=== PATIENT | male | born 1950 | race Caucasian/White ===

== ENCOUNTER 2018-11-04 09:44 | Observation (INO) ==
--- NOTE | 2018-10-28 10:09 | Anesthesiology Consultation ---
Date of Service October 28, 2018 Assessment & Plan (1) Encounter for pre-operative examination: Chart Review Chart Review: Acceptable Risk for Surgery and Patient seen in Pre Admission Testing Consults Requested none Teaching & Discussion Pre-Anesthesia Teaching/Discussion Notes: Instructed NPO after midnight before surgery, except medications with 15 cc of water. Medication instructions provided according to the PAT guidelines. History Surgery Operation Date: 11/04/18 11:55 Proposed Procedures p Percutaneous Nephrolithotomy - Jah Dee II, DO Height/Weight Height: 5 ft 9 in Weight: 75.6 kg Allergies Allergy/AdvReac Type Severity Reaction Status Date / Time No Known Allergies Allergy Verified 10/24/18 10:58 Medications Home Medications Medication Instructions Recorded Confirmed Last Taken amlodipine 10 mg PO QAM 10/24/18 10/24/18 Unknown metoprolol tartrate 25 mg PO QAM 10/24/18 10/24/18 Unknown multivitamin 1 tab PO QAM 10/24/18 10/24/18 Unknown tamsulosin 0.4 mg PO QPM 10/24/18 10/24/18 Unknown Past Medical History Medical History Chronic back pain ON OCC TO RIGHT LEG Hypertension Kidney stones Past Surgical History Surgical History H/O elbow surgery LEFT - REMOVED BURSA SAC H/O hand surgery RIGHT PARTIAL AMPUTATION THIRD DIGIT History of lithotripsy Past Anesthesia History No Hx of Anesthesia Complications and No Family Hx of Anesthesia Complications History of PONV No Motion Sickness Screening History of Motion Sickness: No Social History Smoking Status: Current every day smoker tobacco type: cigarettes Smoking cigarettes per day: 10 CIGS A DAY X 20 YRS (Advised) Do You Dip or Chew Tobacco: Yes (ON OCC (Advised)) Hx Alcohol Use: No Hx Substance Use: No substance use type: does not use Exercise / Class Metabolic Activity II 4-5 Yardwork/Stairs/Walk up hill (Able to easily climb FOS. Denies CP or SOB. ) Review of Systems Patient denies chest pain, shortness of breath, dyspnea on exertion, reflux, cough, wheezing, palpitations. +Joint pain (back) Physical Exam Vital Signs BP: 131/88 P: 82 R: 18 T: 97.9 SPO2: 95% on RA ENMT Mouth: + dentures (Full set on top) and + poor dentition (bottom) Thyromental Distance: > or= 3.5 Finger Breadths (3.5) Mallampati Class: II Neck normal visual inspection and trachea midline; neck extension not limited Respiratory normal respiratory effort Auscultation: lungs clear to auscultation bilaterally Cardiovascular Rate/Rhythm: regular rate and regular rhythm Heart Sounds: no murmur Vessels: no carotid bruit Neurologic moves all extremities Psychiatric Orientation: alert and oriented x 3 Testing Electrocardiogram Date: 10/28/18 Findings: + NSR @ (71) and + NSST changes Chest X-Ray Date: 10/28/18 FINDINGS: PA and lateral chest radiographs are obtained. No prior studies are available for comparison at the time of dictation. The cardiomediastinal silhouette is unremarkable. There is mild bibasilar scarring/atelectasis. The lungs and pleural spaces are otherwise clear. There is no pneumothorax. The bony thorax appears intact. IMPRESSION: No active disease in the chest. Laboratory Results 10/28/18 10:24 10/28/18 10:24 Urine Color Yellow 10/28/18 10:24 Urine Appearance Clear (Clear) 10/28/18 10:24 Urine pH 7.5 (4.5-7.5) 10/28/18 10:24 Ur Specific [place] 1.015 (1.000-1.030) 10/28/18 10:24 Urine Protein 1+ (Negative) H 10/28/18 10:24 Urine Glucose (UA) Negative (Negative) 10/28/18 10:24 Urine Ketones Negative (Negative) 10/28/18 10:24 Urine Nitrite Negative (Negative) 10/28/18 10:24 Ur Leukocyte Esterase 3+ (Negative) H 10/28/18 10:24 Urine WBC (Auto) >30 /hpf (0-5) H 10/28/18 10:24 Urine RBC (Auto) >30 /hpf (0-4) H 10/28/18 10:24 U Hyaline Cast (Auto) 5-10 /lpf (0-5) H 10/28/18 10:24 U Epithel Cells (Auto) 0-5 /lpf (0-5) 10/28/18 10:24 Urine Bacteria (Auto) 1+ (Negative) H 10/28/18 10:24 10/28/18 10:24 Urine Culture - Preliminary Urine,Clean Catch Staphylococcus species Surgeon notified about UTI.
--- NOTE | 2018-10-28 10:16 | PAT Medication Instructions ---
Medication Instructions Date of Service October 28, 2018 Home Medications amlodipine 10 mg PO QAM metoprolol tartrate 25 mg PO QAM multivitamin 1 tab PO QAM tamsulosin 0.4 mg PO QPM DO NOT take the morning of surgery multivitamin 1 tab PO QAM Take morning of surgery With a small sip of water, OTHERWISE NOTHING TO EAT OR DRINK AFTER MIDNIGHT: amlodipine 10 mg PO QAM metoprolol tartrate 25 mg PO QAM Take evening before surgery tamsulosin 0.4 mg PO QPM Other Notes If you have any questions please call us at [phone] or [phone] or [phone] or [phone]
--- NOTE | 2018-10-28 10:44 | XRay Report ---
TWO VIEW CHEST CLINICAL HISTORY: Preoperative examination. FINDINGS: PA and lateral chest radiographs are obtained. No prior studies are available for compariso n at the time of dictation. The cardiomediastinal silhouette is unremarkable. There is mild bibasila r scarring/atelectasis. The lungs and pleural spaces are otherwise clear. There is no pneumothorax. T he bony thorax appears intact. IMPRESSION: No active disease in the chest. Electronically signed by: Rober Kaiser M.D. 10/28/2018 10:43 AM
[2018-10-28 10:51] LABS: Basophils # (auto) 0.06 K/uL (0-0.2); Basophils % (auto) 0.9 %; Eosinophils # (auto) 0.13 K/uL (0-0.5); Eosinophils % (auto) 2.1 %; Hematocrit (blood only) 41.3 % (42-52); Hemoglobin 14.2 g/dL (14.0-18.0); Immature Granulocytes # (auto) 0.01 K/uL (0.00-0.02); Immature Granulocytes % (auto) 0.2 %; Lymphocytes # (auto) 1.94 K/uL (1.2-3.4); Lymphocytes % (auto) 30.6 %; Mean Corpuscular Hgb Conc 34.4 g/dL (32-36); Mean Corpuscular Volume 89.2 fL (80-100); Mean Platelet Volume 9.4 fL (7.4-10.4); Monocytes # (auto) 0.43 K/uL (0.11-0.59); Monocytes % (auto) 6.8 %; Neutrophils # (auto) 3.76 K/uL (1.4-6.5); Neutrophils % (auto) 59.4 %; Platelet Count 294 K/uL (130-400); RDW Coefficient of Variation 14.3 % (11.5-14.5); RDW Standard Deviation 46.9 fL (36.4-46.3); Red Blood Count 4.63 M/uL (4.7-6.1); White Blood Count 6.33 K/uL (4.8-10.8)
[2018-10-28 11:55] LABS: Appearance Urine Clear (Clear); Bacteria Urine Automated 1+ (Negative); Bilirubin Urine Negative (Negative); Blood Urine 2+ (Negative); Color Urine Yellow; Epithelial Cell Urine Auto 0-5 /lpf (0-5); Glucose Urine UA Negative (Negative); Ketones Urine Negative (Negative); Leukocyte Esterase Urine 3+ (Negative); Nitrite Urine Negative (Negative); RBC Urine Automated >30 /hpf (0-4); Specific Gravity Urine 1.015 (1.000-1.030); Urobilinogen Urine Negative (Negative); WBC Urine Automated >30 /hpf (0-5); pH Urine 7.5 (4.5-7.5)
[2018-10-28 12:09] LABS: Protein Urine 1+ (Negative)
[2018-10-28 12:32] LABS: BUN Creatinine Ratio 14.8 (10-20); Calcium 8.5 mg/dl (8.5-10.1); Creatinine Clr Calc Pharmacy 61.5 ml/min; Est GFR (African American) 75.4; Potassium 3.8 mmol/L (3.5-5.1)
[~2018-11-04 09:44] MED LIST: CEFAZOLIN 2000MG 2,000 MG/15 ML SYR IV SCH; LR 15ML/HR IV SCH
[2018-11-04] MEDS ORDERED: ONDANSETRON INJ 2 MG/ML 2 ML VIAL IV PRN ×2 (11:13→17:14)
[2018-11-04] MEDS ORDERED: ePHEDrine sulfate 50 MG/ML AMP IV PRN (11:13)
[2018-11-04] MEDS ORDERED: fentaNYL citrate 100 MCG/2 ML VIAL IV PRN (11:13)
[2018-11-04] MEDS ORDERED: ATROPINE SULFATE 0.1 MG/ML 10ML SYR IV PRN (11:13)
[2018-11-04] MEDS ORDERED: LARYING-O-JET KIT (LTA) ONE (11:38)
[2018-11-04] MEDS ORDERED: ONDANSETRON INJ 2 MG/ML 2 ML VIAL ONE (11:38)
[2018-11-04] MEDS ORDERED: MIDAZOLAM HCL 1 MG/ML 2ML VIAL ONE (11:38)
[2018-11-04] MEDS ORDERED: GLYCOPYRROLATE 0.2 MG/ML VIAL ONE ×2 (11:38→15:48)
[2018-11-04] MEDS ORDERED: PROPOFOL IV EMULSION 10 MG/ML 20 ML VIAL IV ONE (11:38)
[2018-11-04] MEDS ORDERED: ePHEDrine sulfate 50 MG/ML SYR ONE (11:38)
[2018-11-04] MEDS ORDERED: DEXAMETHASONE SOD INJ 4 MG/ML VIAL ONE (11:38)
[2018-11-04] MEDS ORDERED: LIDOCAINE HCL 2% 2 ML VIAL/AMP(20MG/ML) INFIL ONE (11:38)
[2018-11-04] MEDS ORDERED: ROCURONIUM BROMIDE 10 MG/ML 5 ML VIAL ONE (11:38)
[2018-11-04] MEDS ORDERED: NEOSTIGMINE METHYLSULFATE 5 MG/5 ML SYR ONE (11:38)
[2018-11-04] MEDS ORDERED: fentaNYL citrate 100 MCG/2 ML VIAL ONE ×3 (11:38→16:18)
--- NOTE | 2018-11-04 11:54 | History & Physical Bridge Note ---
Date of Service November 04, 2018 History & Physical Bridge Note I have examined the patient, reviewed the History & Physical and in the interval since the performance of the History & Physical I have noted the following changes of clinical significance: no changes noted
[2018-11-04] MEDS ORDERED: LIDOCAINE HCL 1% 20 ML VIAL ONE (13:37)
[2018-11-04] MEDS ORDERED: GELATIN SPONGE 12-7MM ONE (13:37)
[2018-11-04] MEDS ORDERED: BUPIVACAINE/EPINEPHRINE 0.5% MPF 1:200,000 30 ML VIAL ONE (13:37)
[2018-11-04] MEDS ORDERED: IOTHALAMATE MEGLUMINE II 17.2% 250 ML VIAL ONE (13:37)
--- NOTE | 2018-11-04 15:58 | Post Operative Brief Note ---
Immediate Post Op Note v1 Date of Surgery November 04, 2018 Pre & Post Diagnosis Operation Date: 11/04/18 11:40 Pre-Op Diagnosis: Nephrolithiasis Post-Op Diagnosis: Nephrolithiasis Procedure Operation Date: 11/04/18 11:40 Actual Procedures p Percutaneous Nephrolithotomy(Right) - Jah Dee II, DO Surgeon Jah Dee II, DO Ski Binding Fitter And Repairer Lilo LEMUS Estimated Blood Loss 10 Findings Consistent with Post-Op Diagnosis Specimens Stone right renal pelvis Drains Neal Catheter and Other Anesthesia Type General Complications none Disposition Disposition: Recovery Room Overlapping Procedure I was present for: the critical portions of procedure. I was immediately available: during the entire case. Back up surgeon: was not required during procedure.
--- NOTE | 2018-11-04 16:21 | Operative Report ---
Post Operative Report Pre & Post Diagnosis Operation Date: 11/04/18 11:40 Pre-Op Diagnosis: Nephrolithiasis Post-Op Diagnosis: Nephrolithiasis Procedure Operation Date: 11/04/18 11:40 Actual Procedures p Percutaneous Nephrolithotomy with [place] Lithoclast Lithotripsy and dilation and ureteroscopy with stone extraction. (Right) - Jah Dee II, DO Surgeon Jah Dee, II, DO Web Systems Developer Lilo LEMUS Estimated Blood Loss 10 Findings Consistent with Post-Op Diagnosis Approx 2.8 x 3.6 x 2.0 cm of total stone burden filling the renal pelvis. 1 cm stone in UPJ with stent migrated down into ureter. Specimens Stone right renal pelvis. Drains 18 Fr Neal Anesthesia Type General Complications none Disposition Disposition: Recovery Room Indications Patient with large stone burden in right renal pelvis with previous stent and nephrostomy tube. Risks and benefits discussed at length. Description of Procedure Patient was consented and brought back to the operating room. Patient was placed under anesthesia in the supine position. At this point, a catheter was placed and the patient was moved to the prone position. Patient was prepped and draped in the regular sterile fashion. A time out was completed. With timeout completed, a nephrostogram was completed through the tube, the nephrostomy tube was unsecured, and a wire was placed. This wire was manipulated and positioned into the ureter. Local anesthetic was placed into the skin. The nephrostomy tube was removed and an incision was made into the skin and subcutaneous tissues. The 8-10 Fr Dilator was taken over the wire and dilated the tract. The 10 fr sheath was left in place and a second wire was placed and secured once the sheath was removed. The balloon dilator was selected and the tissues were dilated with 12-13 mmHg of pressure into the balloon. This was elevated for for adequate dilation and the nephrotomy sheath was placed over the partially deflated balloon. The first attempt at placement did not adequately position the sheath. The wire was left in place and the balloon elevated again. This was taken again to 12-13 mmhg. The balloon was partially deflated and the sheath was advanced again. This time, the sheath was better positioned. It was easily placed and advanced. The balloon was removed and the wire remained. The nephroscope was selected and taken into the pelvis.. The large stones were identified and the lithoclast device was selected. The stones was pulverized to fragments with the ultrasonic and pneumatic settings. Fragments were irrigated. The large stones were completely destroyed. Larger fragments were grasped and removed. The remaining pelvis was examined. Further stones were identified in the lower pole and upper pole and these were pulverized with fragments removed. The entire pelvis was found to be clear of stones. No additional stone fragments were discovered. The UPJ was examined and found to contain a larger stone approx 1 cm that appeared to displace the ureteral stent which was already in place. The stone fragment was grasped and removed. The remaineder was found to be clear of fragments. The stent was notably down in the proximal ureter. A flexible scope was taken with a grasper and the stent was repositioned with placement in the renal pelvis. The UPJ appeared narrowed, but may have been edema due to large stones. The distal end of the stent remained in good position in the bladder. The entire pelvis was examined with the flexible scope. The nephroscope was placed a final time to remove a small lower pole fragment. No other stone fragments or areas of concern. The Nephroscope was removed as well as the sheath and pressure was held for 5 minutes. Surgical foam was placed into the subcutaneous tissues for assistance with hemostasis. The skin was cleaned. A 2-0 Vicryl suture was used to close subcutaneous tissues. A 4-0 monocryl suture was used to close the skin in an interrupted horizontal mattress stitch. Glue was placed after the area was cleaned. The Patient was cleaned and multiple 4x4 were placed and taped in posit ion. The patient was cleaned, aroused from anesthesia, and transferred to the supine position for extubation. After extubation, the patient was transferred to the pacu in stable condition having tolerated the procedure well with no complications. I was present and participated in all aspects of the procedure. All counts were correct. GretelReta Zavala was present and participated in the entire procedure. She was involved in the entire procedure especially with management of access, scope management, and closure. I attest to the content of the Intraoperative Record and any orders documented therein. Any exceptions are noted below.
--- NOTE | 2018-11-04 16:41 | Anesthesiology Progress Note ---
Date of Service November 04, 2018 Anesthesia Post Procedure Vital Signs Vital Signs: Temp Pulse Pulse Resp BP BP Pulse Ox 11/04/18 16:35 78 12 134/80 94 11/04/18 16:25 91 H 12 146/81 H 99 11/04/18 16:15 103 H 18 149/82 H 99 11/04/18 16:08 36.4 C L 104 H 19 142/83 H 99 11/04/18 10:15 36.6 C 83 18 149/93 H 95 Pain Intensity Right Flank: Pain Intensity: 2 Notes Mental Status: alert / awake / arousable Patient Amnestic to Procedure: Yes Nausea / Vomiting: adequately controlled Pain: adequately controlled Airway Patency, RR, SpO2: stable & adequate BP & HR: stable & adequate Hydration State: stable & adequate Anesthetic Complications: no major complications apparent
[2018-11-04 16:49] LABS: Basophils # (auto) 0.01 K/uL (0-0.2); Basophils % (auto) 0.1 %; Eosinophils # (auto) 0.07 K/uL (0-0.5); Eosinophils % (auto) 0.8 %; Hematocrit (blood only) 37.6 % (42-52); Hemoglobin 12.7 g/dL (14.0-18.0); Immature Granulocytes # (auto) 0.01 K/uL (0.00-0.02); Immature Granulocytes % (auto) 0.1 %; Lymphocytes # (auto) 1.42 K/uL (1.2-3.4); Lymphocytes % (auto) 16.5 %; Mean Corpuscular Hgb Conc 33.8 g/dL (32-36); Mean Corpuscular Volume 89.3 fL (80-100); Mean Platelet Volume 9.4 fL (7.4-10.4); Monocytes # (auto) 0.13 K/uL (0.11-0.59); Monocytes % (auto) 1.5 %; Neutrophils # (auto) 6.95 K/uL (1.4-6.5); Platelet Count 219 K/uL (130-400); RDW Coefficient of Variation 14.4 % (11.5-14.5); RDW Standard Deviation 47.3 fL (36.4-46.3); Red Blood Count 4.21 M/uL (4.7-6.1); White Blood Count 8.59 K/uL (4.8-10.8)
[2018-11-04] MEDS ORDERED: OXYCODONE HCL IR 5 MG TAB (IMMEDIATE RELEASE) PO PRN ×2 (17:14)
[2018-11-04] MEDS ORDERED: BELLADONNA/OPIUM SUPP 60 MG SUPP PR PRN (17:14)
[2018-11-04] MEDS ORDERED: ACETAMINOPHEN 1,000 MG/100 ML VIAL IV PRN (17:14)
--- NOTE | 2018-11-04 17:24 | Fluoroscopy Report ---
FL KUB HISTORY: 68 years-old Male PERCUTANEROUS NEPHROLITHOTOMY COMPARISON: None available TECHNIQUE: 8 spot fluoroscopic images of the left abdomen were obtained utilizing 319.3 seconds fluor oscopy time FINDINGS: Percutaneous nephrostomy catheter noted with distal tip within the region of the left renal pelvis. C ontrast opacification of the catheter demonstrates moderate dilation of the left renal pelvis and torito yces with calyceal blunting. Double pigtail Left-sided ureteral stent is also noted, proximal tip wit hin the distribution of the ureteropelvic junction. Distal portion of the stent is noted within the r egion of the urinary bladder lumen. Subsequent images demonstrate interval removal of the percutaneou s catheter. IMPRESSION: Fluoroscopic assistance as above. Please see procedural report for further details. The above report was generated using voice recognition software. It may contain grammatical, syntax o r spelling errors. Electronically signed by: Tyson Tapia M.D. 11/04/2018 5:22 PM
[2018-11-04 17:32] LABS: BUN Creatinine Ratio 12.5 (10-20); Calcium 8.2 mg/dl (8.5-10.1); Creatinine Clr Calc Pharmacy 62.6 ml/min; Est GFR (Non-African American) 66.4; Potassium 3.4 mmol/L (3.5-5.1)
[2018-11-04 17:34] LABS: Albumin Globulin Ratio 0.7 (0.9-2); Bilirubin,Total 0.4 mg/dl (0.2-1); Globulin 4.1 gm/dl (2.5-4.0); Total Protein 7.1 gm/dl (6.4-8.2)
[2018-11-04 18:19] LABS: BUN Creatinine Ratio 13.2 (10-20); Calcium 8.2 mg/dl (8.5-10.1); Creatinine Clr Calc Pharmacy 65.5 ml/min; Est GFR (African American) 81.3; Est GFR (Non-African American) 70.2; Potassium 3.5 mmol/L (3.5-5.1)
[2018-11-04] MEDS: LACTATED RINGER'S 1,000 ML IV SCH (18:19)
[2018-11-04] MEDS ORDERED: MoRPHine SULFATE 4 MG/ML 1 ML CARP\\VIAL IV PRN (19:22)
[2018-11-04] MEDS: DOCUSATE SODIUM 100 MG CAP PO SCH (20:46)
[2018-11-04] MEDS: FAMOTIDINE 20 MG in SYRINGE 3 ML IV SCH (20:46)
[2018-11-04] MEDS ORDERED: TAMSULOSIN HCL 0.4 MG CAP PO SCH (21:00)
[2018-11-04] MEDS: CEFAZOLIN 2000MG 2,000 MG/15 ML SYR IV SCH (21:41)
[2018-11-05] MEDS: LACTATED RINGER'S 1,000 ML IV SCH (02:11)
[2018-11-05] MEDS: CEFAZOLIN 2000MG 2,000 MG/15 ML SYR IV SCH (05:46)
[2018-11-05 06:38] LABS: Basophils # (auto) 0.01 K/uL (0-0.2); Basophils % (auto) 0.1 %; Eosinophils # (auto) 0.01 K/uL (0-0.5); Eosinophils % (auto) 0.1 %; Hematocrit (blood only) 37.4 % (42-52); Hemoglobin 12.7 g/dL (14.0-18.0); Immature Granulocytes # (auto) 0.01 K/uL (0.00-0.02); Immature Granulocytes % (auto) 0.1 %; Lymphocytes # (auto) 1.38 K/uL (1.2-3.4); Lymphocytes % (auto) 13.5 %; Mean Corpuscular Volume 89.7 fL (80-100); Mean Platelet Volume 9.2 fL (7.4-10.4); Monocytes # (auto) 0.79 K/uL (0.11-0.59); Monocytes % (auto) 7.8 %; Neutrophils # (auto) 7.99 K/uL (1.4-6.5); Neutrophils % (auto) 78.4 %; Platelet Count 226 K/uL (130-400); RDW Standard Deviation 46.1 fL (36.4-46.3); Red Blood Count 4.17 M/uL (4.7-6.1); White Blood Count 10.19 K/uL (4.8-10.8)
[2018-11-05 06:47] VITALS: BP 125/68; PULSE 74; TEMP 98.6; O2SAT 92
[2018-11-05 06:53] LABS: Albumin Level 2.9 gm/dl (3.4-5.0); BUN Creatinine Ratio 10.6 (10-20); Calcium 8.4 mg/dl (8.5-10.1); Creatinine Clr Calc Pharmacy 57.5 ml/min; Est GFR (African American) 69.5; Est GFR (Non-African American) 59.9; Potassium 3.9 mmol/L (3.5-5.1)
[2018-11-05 06:56] LABS: Albumin Globulin Ratio 0.7 (0.9-2); Bilirubin,Total 0.5 mg/dl (0.2-1); Total Protein 6.9 gm/dl (6.4-8.2)
--- NOTE | 2018-11-05 07:26 | CT Scan Report ---
ABDOMEN AND PELVIS CT WITHOUT CONTRAST CT DOSE: 473.40 mGy.cm HISTORY: Postop. Right percutaneous nephrostomy tube. TECHNIQUE: Multiaxial CT images of the abdomen and pelvis were performed without contrast. A dose lo wering technique was utilized adhering to the principles of ALARA. COMPARISON STUDY: None. FINDINGS: Trace bilateral pleural effusions. Bibasilar linear densities consistent with subsegmental atelectasis. Trace right retroperitoneal gas. As also small of gas within the right renal collecting system. Small amount of gas within the bladder. No suspicious lytic or blastic osseous lesions. The u nenhanced liver, gallbladder, spleen, adrenal glands, and pancreas are unremarkable. No retroperitone al lymphadenopathy. Bilateral renal calculi. Dominant stone within the left renal pelvis measures 1.4 cm. Mild right urothelial thickening within the right renal collecting system and right ureter. No b ladder wall thickening. No ureteral stones. Mild bilateral perinephric edema. Right retroperitoneal s oft tissue nodule adjacent to the inferior to the right hepatic lobe best in image 187. This measures 2.7 x 1.4 cm. This could represent a small amount of exophytic liver tissue, accessory spleen, or po ssibly a small amount of retroperitoneal hemorrhage. No definite bowel wall thickening or obstruction . Colonic diverticulosis. No evidence for diverticulitis. Normal appendix. IMPRESSION: 1. The right ureteral stent appears in good position. Mild urothelial thickening within the right oral al collecting system and right ureter which may be reactive to the stent placement. There is also gas within the right renal collecting system and trace amount of gas within the right retroperitoneal sp nolan. This likely due to recent postoperative change. Infectious process could also have a similar rito earance but is considered less likely. Clinical correlation recommended. 3. A small right retroperitoneal hyperdense nodule measuring 2.7 x 1.4 cm. This is indeterminate and may represent a small amount of exophytic liver or splenic tissue. A small retroperitoneal hematoma c ould also have a similar appearance. This finding was called/faxed to the emergency Department follow ing dictation. 4. Colonic diverticulosis. 5. Bilateral nephrolithiasis. No hydronephrosis. Electronically signed by: Feng Garcia M.D. 11/05/2018 7:25 AM
--- NOTE | 2018-11-05 07:47 | Urology Progress Note ---
Date of Service November 05, 2018 Assessment & Plan (1) Right nephrolithiasis: 68yo M s/p POD #1 R PCNL Uneventful evening Progressing as expected CT abd/pelvis completed this AM - stable Neal d/c'd - voiding spontaneously without difficulty. Continue to ambulate in halls. Okay to have regular diet for breakfast and lunch. Okay to d/c home after lunch if doing well. Dr. Dee also in to see patient this AM and agreeable with plan to discharge home. Follow-up arranged for next week with Dr. Dee. Subjective POD #1 R PCNL Doing well, uneventful night Dressing intact, no drainage around badge Sore but no extreme pain, well controlled Ambulating in room. Denies n/v. Denies fever/chills. Catheter d/c'd this AM per order, has voided spontaneously. Mild dysuria and urgency with stent in place - expected. Denies significant hematuria. Review of Systems All systems reviewed & are unremarkable except as noted in HPI & below Physical Exam Vital Signs (Past 24 Hours): Last Vital Signs Temp 37.0 C 11/05/18 06:46 Pulse 74 11/05/18 06:46 Resp 18 11/05/18 06:46 BP 125/68 11/05/18 06:46 Pulse Ox 92 11/05/18 06:46 Physical Exam: A&Ox3 RRR Abd soft, nontender R flank incision dry. No drainage or ecchymosis. Results & Data Laboratory Results Laboratory Results - last 48 hr 11/04/18 11/04/18 11/04/18 16:37 16:37 17:44 WBC 8.59 RBC 4.21 L Hgb 12.7 L Hct 37.6 L MCV 89.3 MCH 30.2 MCHC 33.8 RDW Std Deviation 47.3 H RDW Coeff of Eileen 14.4 Plt Count 219 MPV 9.4 Immature Gran % (Auto) 0.1 Neut % (Auto) 81.0 Lymph % (Auto) 16.5 Wake % (Auto) 1.5 Eos % (Auto) 0.8 Baso % (Auto) 0.1 Immature Gran # (Auto) 0.01 Neut # (Auto) 6.95 H Lymph # (Auto) 1.42 Wake # (Auto) 0.13 Eos # (Auto) 0.07 Baso # (Auto) 0.01 Sodium 139 139 Potassium 3.4 L 3.5 Chloride 107 107 Carbon Dioxide 25 26 Anion Gap 7.0 6.0 BUN 14 14 Creatinine 1.13 1.08 Est Cr Clr Drug Dosing 62.6 65.5 Est GFR ( Amer) 77.0 81.3 Est GFR (Non-Af Amer) 66.4 70.2 BUN/Creatinine Ratio 12.5 13.2 Glucose 134 H 134 H Calcium 8.2 L 8.2 L Total Bilirubin 0.4 AST 15 ALT 18 Alkaline Phosphatase 104 Total Protein 7.1 Albumin 3.0 L Globulin 4.1 H Albumin/Globulin Ratio 0.7 L 11/05/18 11/05/18 06:19 06:19 WBC 10.19 RBC 4.17 L Hgb 12.7 L Hct 37.4 L MCV 89.7 MCH 30.5 MCHC 34.0 RDW Std Deviation 46.1 RDW Coeff of Eileen 14.0 Plt Count 226 MPV 9.2 Immature Gran % (Auto) 0.1 Neut % (Auto) 78.4 Lymph % (Auto) 13.5 Wake % (Auto) 7.8 Eos % (Auto) 0.1 Baso % (Auto) 0.1 Immature Gran # (Auto) 0.01 Neut # (Auto) 7.99 H Lymph # (Auto) 1.38 Wake # (Auto) 0.79 H Eos # (Auto) 0.01 Baso # (Auto) 0.01 Sodium 138 Potassium 3.9 Chloride 106 Carbon Dioxide 25 Anion Gap 7.0 BUN 13 Creatinine 1.23 Est Cr Clr Drug Dosing 57.5 Est GFR ( Amer) 69.5 Est GFR (Non-Af Amer) 59.9 BUN/Creatinine Ratio 10.6 Glucose 126 H Calcium 8.4 L Total Bilirubin 0.5 AST 14 L ALT 17 Alkaline Phosphatase 100 Total Protein 6.9 Albumin 2.9 L Globulin 4.0 Albumin/Globulin Ratio 0.7 L
--- NOTE | 2018-11-05 08:00 | Anesthesiology Progress Note ---
Date of Service November 05, 2018 Anesthesia Post Procedure Vital Signs Vital Signs: Temp Pulse Pulse Resp BP BP Pulse Ox 11/05/18 06:46 37.0 C 74 18 125/68 92 11/05/18 04:10 37 C 87 18 136/69 94 11/05/18 00:10 36.9 C 81 18 132/72 94 11/04/18 20:15 36.4 C L 91 H 18 142/77 H 96 11/04/18 17:34 36.6 C 89 16 150/82 H 94 11/04/18 17:05 36.4 C L 100 H 16 123/79 95 11/04/18 16:45 36.4 C L 86 17 145/78 H 96 11/04/18 16:35 78 12 134/80 94 11/04/18 16:25 91 H 12 146/81 H 99 11/04/18 16:15 103 H 18 149/82 H 99 11/04/18 16:08 36.4 C L 104 H 19 142/83 H 99 11/04/18 10:15 36.6 C 83 18 149/93 H 95 Pain Intensity Right Flank: Pain Intensity: 2 Notes Mental Status: alert / awake / arousable and participated in evaluation Patient Amnestic to Procedure: Yes Nausea / Vomiting: adequately controlled Pain: adequately controlled Airway Patency, RR, SpO2: stable & adequate BP & HR: stable & adequate Hydration State: stable & adequate Anesthetic Complications: no major complications apparent and Pt Satisfied with anesthetic care
[2018-11-05] MEDS: DOCUSATE SODIUM 100 MG CAP PO SCH (08:45)
[2018-11-05] MEDS: FAMOTIDINE 20 MG in SYRINGE 3 ML IV SCH (08:49)
[2018-11-05] MEDS ORDERED: MULTIVITAMIN TAB PO SCH (09:00)
[2018-11-05] MEDS ORDERED: METOPROLOL TARTRATE 25 MG TAB PO SCH (09:00)
[2018-11-05] MEDS ORDERED: AMLODIPINE BESYLATE 5 MG TAB PO SCH (09:00)
--- NOTE | 2018-11-09 17:35 | Discharge Summary ---
Date of Service November 09, 2018 Admission HPI Per Admitting Provider See H&P Large stone with obstruction. Had nephrostomy tube placed in anticipation of PCNL Admission Exam Per Admitting Provider See H&P Principal Diagnosis Staghorn UPJ Stone. Discharge Exam ENMT Mouth: + dentures (Upper) and + poor dentition Mallampati Class: II Neck normal visual inspection and trachea midline; neck extension not limited Respiratory normal respiratory effort Auscultation: lungs clear to auscultation bilaterally Cardiovascular Rate/Rhythm: regular rate and regular rhythm Heart Sounds: no murmur Vessels: no carotid bruit Neurologic moves all extremities Psychiatric Orientation: alert and oriented x 3 Discharge Data Allergies Allergy/AdvReac Type Severity Reaction Status Date / Time No Known Allergies Allergy Verified 11/04/18 10:11 Procedures Performed Operation Date: 11/04/18 11:40 Actual Procedures p Percutaneous Nephrolithotomy(Right) - Jah Dee II, DO Ordered Studies 11/04/18 12:30 FL KUB Routine FL fluoroscopy <1hr Routine 11/05/18 06:00 CT abd pelvis wo con Urgent Hospital Course (1) Right nephrolithiasis: 68yo M s/p POD #1 R PCNL Uneventful evening Progressing as expected CT abd/pelvis completed this AM - stable Neal d/c'd - voiding spontaneously without difficulty. Continue to ambulate in halls. Okay to have regular diet for breakfast and lunch. Okay to d/c home after lunch if doing well. Dr. Dee also in to see patient this AM and agreeable with plan to discharge home. Follow-up arranged for next week with Dr. Dee. Total Time Total Time Spent Total Time Spent (In Minutes): 10 min Total Time Includes: Examination of the Patient, Discharge Planning, Medication Reconciliation, Communication With Other Providers and Other Discharge Plan Discharge Items Patient Disposition: Home - Self-Care Reason For Visit: Nephrolithiasis Discharge Diagnosis: Nephrolithiasis Discharge Goals: Improve function Activity: Resume your previous activity Lifting: No more than 10 pounds Bathing: Keep incision dry Bathing Comment: okay to shower tomorrow. No soaking or tub baths. Sexual Activity: Wait until after follow-up appointment Exercise/Sports: Rest today and Wait until after follow-up appointment Driving/Machine Use: Resume 1 day after discharge Driving/Machine Use Comment: Please do not drive while taking prescription pain medication Non-emergency contact: Urologist Call non-emergency contact if: your symptoms worsen, your pain is concerning for you, you have a fever, your temperature is above 101, your wound has increased redness, your wound has increased drainage and your wound pain has increased Follow-up/Referrals: Jah Dee II, DO [Physician] - 11/14/18 Phil Tracey D.O. [Primary Care Provider] - Diet: Regular Addtl Provider Instructions: Please take all medications as prescribed and keep all follow-ups as scheduled. Please call our office at [phone] with any questions, concerns or need to reschedule appointments for any reason. We are happy to assist you. Please do not pick at surgical glue, it will fall off naturally in 7-[address] while taking prescription pain medication. Avoid Ibuprofen and other NSAIDs for the next week. Tylenol is okay. We recommend taking colace (stool softener) BID x2 weeks post-operatively to prevent straining/constipation. Take as needed after that. While you have a ureteral stent in place: Some discomfort is normal. Certain movements may trigger pain or a feeling that you need to urinate. You may also feel mild soreness or pressure before or during urination. These symptoms should go away a few days after the stent is removed. Your urine may be slightly pink or red. This is due to bleeding caused by minor irritation from the stent. This may happen on and off while you have the stent, it is not harmful and is to be expected. Medication to help minimize discomfort or bladder spasms, or to prevent infection may be prescribed. Take this as directed. Drink plenty of fluids to help flush out your urinary tract. If you go home with a catheter, wash with soapy water and a fresh washcloth twice daily. We recommend mild bar soap such as Dial or Dove. How long will you need a stent? An appointment should already be made for you for stent removal, unless directed otherwise. The stent is often taken out after the blockage in the ureter is treated or the ureter has healed. This may take 1-2 weeks, or longer. If a stent is needed for a longer period of time, it may need to be exchanged every few months. Likely prior to your followup appointment you will be asked to get an X-ray, please complete this the night before or morning of your appointment. When to call [facility] [place] [facility] at [phone]: Your urine contains heavy blood clots You are constantly leaking urine Fever of 101F or higher, chills, nausea, or vomiting Your pain is not relieved with medication The end of the stent comes out of your urethra Prescriptions: New docusate sodium [Colace] 100 mg capsule 100 mg PO BID Qty: 60 RF: 0 oxycodone-acetaminophen 5-325 mg tablet 2 tab PO TID PRN (Reason: pain) Qty: 14 RF: 0 Continued multivitamin Tablet 1 tab PO QAM RF: 0 tamsulosin 0.4 mg Capsule 0.4 mg PO QPM RF: 0 amlodipine 10 mg Tablet 10 mg PO QAM RF: 0 metoprolol tartrate 25 mg Tablet 25 mg PO QAM RF: 0 Stand-Alone Forms: [facility], [facility] [employer]/Other Patient Handouts: Nephrostomy Percutaneous Dc Discharge Orders: Discharge Order (Routine); Ordered 11/05/18 Ordered By: Lilo Zavala Admission Data Admit Date/Time: 11/04/18 16:32 Attending Provider: Jah Dee II Admit Provider: Jah Dee II Primary Care Provider: Phil Tracey Service: Surgical Services Other Interventions: Discharge Summary Assessment (RN) Last Done: 11/05/18 12:34 DC Date/Time DO NOT enter until pt leaves facility: 11/05/18 13:10
[2018-11-11 12:56] LABS: Component 2 DNR; Source Kidney
== END 2018-11-05 13:10 | disposition home or self-care (01) ==
LOC: ASU 09:44 → 3N 09:44